=== PATIENT | male | born 1990 | race Hispanic/Latino ===

== ENCOUNTER 2025-11-24 13:11 | Observation (INO) | payer OTHER, SELFPAY ==
[~2025-11-24 13:11] MED LIST: Iopamidol-370 76% 500 ML MDV (1 ML CHARGE) ONE
[2025-11-24] MEDS ORDERED: Ketorolac Tromethamine 30 MG (1 mL) VIAL ONE (13:30)
[2025-11-24 13:51] LABS: #Basophils 0.05 10x3/uL (0.0-0.2); #Eosinophils 0.11 10x3/uL (0.0-0.7); #Monocytes 1.01 10x3/uL (0.11-0.59); #Neutrophils 10.11 10x3/uL (1.40-6.50); %Basophils 0.4 % (0.0-1.0); %Eosinophils 0.8 % (0.0-10.0); %Lymphocytes 17.4 % (21.0-51.0); %Monocytes 7.4 % (0.0-10.0); %Neutrophils 73.7 % (42.0-75.0); Hematocrit 48.3 % (42.0-52.0); Hemoglobin 16.4 g/dL (14.0-18.0); Mean Corpuscular Hemoglobin 28.4 pg (27.0-31.0); Mean Corpuscular Volume 83.7 fL (78.0-98.0); Platelet Count 282 10x3/uL (130-400); Red Blood Cell (RBC) Count 5.77 mill/uL (4.70-6.10); White Blood Cell (WBC) Count 13.71 10x3/uL (4.8-10.8)
[2025-11-24 14:24] LABS: ALT (SGPT) 32 U/L (Less than 45); AST (SGOT) 28 U/L (11-34); Albumin 4.4 g/dL (3.1-4.5); Alkaline Phosphatase 70 U/L (40-110); Anion Gap 12 mmol/L (10-20); BUN (Urea Nitrogen) 13 mg/dL (8.9-20.6); Bilirubin, Total 0.6 mg/dL (0.3-1.2); Calc. Creatinine Clearance 0 mL/min (70-130); Calcium 9.8 mg/dL (7.8-10.44); Carbon Dioxide 28 mmol/L (22-29); Chloride 105 mmol/L (98-107); Globulin 3.7 g/dL (2.4-3.5); Glucose 86 mg/dL (70-105); Lipase 16 U/L (8-78); Potassium 3.6 mmol/L (3.5-5.1); Sodium 141 mmol/L (136-145)
[2025-11-24 14:39] LABS: Bacteria/HPF None Seen HPF (None Seen); CAUTI Indications for Culture Dysuria,urgency,freq; Glucose, Urine (Dipstick) Normal (Negative); Leukocyte Negative Leu/uL (Negative); Protein, Urine (Dipstick) Negative (Neg-Trace); RBC/HPF 0-3 HPF (0-3); Specific Gravity, Urine 1.041 (1.002-1.036); WBC/HPF 0-3 HPF (0-3)
[2025-11-24 14:43] LABS: Urine Culture Reflex No No
[2025-11-24] MEDS ORDERED: Dextrose 50% Abboject 50 ML SYRINGE SLOW IVP PRN (16:06)
[2025-11-24] MEDS ORDERED: Acetaminophen 325 MG TAB PO PRN (16:06)
[2025-11-24] MEDS ORDERED: Ondansetron PF 4 MG/2 ML Vial IVP PRN (16:06)
[2025-11-24] MEDS ORDERED: hydrALAZINE 20 MG/ML VIAL SLOW IVP PRN (16:06)
[2025-11-24] MEDS ORDERED: Glucagon 1 MG/ML KIT IM PRN (16:06)
[2025-11-24] MEDS: Famotidine 20 MG TAB PO SCH (21:06)
[2025-11-24] MEDS: Famotidine/PF 20 mg/2ml Vial SLOW IVP SCH (21:18)
[2025-11-25] MEDS ORDERED: Bupivacaine 0.25% HCL 30 ML VIAL ONE (09:42)
[2025-11-25] MEDS ORDERED: PROPOFOL 20 ML ONE (09:47)
[2025-11-25] MEDS ORDERED: Rocuronium Bromide 10 MG/ML (10ML VIAL) ONE (09:47)
[2025-11-25] MEDS ORDERED: Ondansetron PF 4 MG/2 ML Vial ONE (09:47)
[2025-11-25] MEDS ORDERED: SUCCINYLCHOLINE/SOD CL,ISO/PF 200 MG/10 ML SYRINGE FS ONE (09:47)
[2025-11-25] MEDS ORDERED: Lidocaine 1% PF 5 ML VIAL ONE (09:47)
[2025-11-25] MEDS ORDERED: fentaNYL PF 100 MCG/2 ML SYRINGE ONE (09:47)
[2025-11-25] MEDS ORDERED: SUGAMMADEX SODIUM 200 MG/2 ML VIAL ONE (10:47)
[2025-11-25] MEDS ORDERED: Ketorolac Tromethamine 30 MG (1 mL) VIAL ONE (10:47)
[2025-11-25 11:52] VITALS: TEMP 97.9
[2025-11-25 15:46] VITALS: BP 119/72
== END 2025-11-25 17:23 | disposition home or self-care (01) ==
LOC: ERS 13:11 → ERHOLD 15:43 → SURG B 19:41
PROVIDERS: ADMIT Colon & Rectal Surgery; ATTEND Colon & Rectal Surgery
PROC: 0DTJ4ZZ Resection of Appendix, Percutaneous Endoscopic Approach (ICD-10-PCS; principal; 2025-11-25)
DX: K35.80 Unspecified acute appendicitis (principal)
CPT/HCPCS: 74177; 80053; 81001; 83605; 83690; 85025; 87040; 88304; 96365; 96366; 96375; A4314; A4649; C1889; J0169; J0665; J1100; J1308; J1885; J2250; J2405; J2543; J2704; J7120; Q9967